=== PATIENT | female | born 1995 | race Caucasian/White ===

== ENCOUNTER 2025-06-14 15:45 | Inpatient (IN) | payer BC ==
[~2025-06-14] VITALS: Ht 160 cm; Wt 113.9 kg
[2025-06-14 16:27] LABS: PREGNANCY TEST URINE QUAL NEGATIVE (NEGATIVE)
[2025-06-14 16:41] LABS: APPEARANCE,URINE CLEAR (CLEAR); BLOOD, URINE TRACE-INTA Ery/uL (NEGATIVE); LEUKOCYTE ESTERASE ,URINE TRACE (NEGATIVE); NITRITE, URINE POSITIVE (NEGATIVE); UGLUCOSE NEGATIVE (NEGATIVE)
[2025-06-14 16:44] LABS: PLATELET COUNT (AUTO) 254 K/uL (150-450); RED BLOOD CELL COUNT(AUTO) 4.45 MIL/uL (4.0-5.2); RED CELL DISTRIBUTION WIDTH 14.6 % (11.5-15.0); WHITE BLOOD COUNT (AUTO) 6.0 K/uL (4.3-11.0)
[2025-06-14 16:54] LABS: SQUAMOUS EPITHELIAL CELL,UR Many /HPF (None Seen)
[2025-06-14 16:55] LABS: ADD URINE CULTURE YES
[2025-06-14 16:56] LABS: COARSE GRANULAR CASTS,URINE Few /LPF (None Seen)
[2025-06-14 16:58] LABS: AMPHETAMINE, URINE NEGATIVE (NEGATIVE); BARBITURATE, URINE NEGATIVE (NEGATIVE); BENZODIAZEPINE, URINE NEGATIVE (NEGATIVE); COCCAINE, URINE NEGATIVE (NEGATIVE); OPIATE, URINE NEGATIVE (NEGATIVE)
[2025-06-14 17:03] LABS: CALCIUM, SERUM 8.3 mg/dL (8.5-10.1); CREATININE 0.6 mg/dL (0.6-1.3); SODIUM SERUM 142 mmol/L (136-145); UREA NITROGEN, BLOOD 6 mg/dL (7-18)
[2025-06-14 17:05] LABS: CANNABINOID, URINE POSITIVE (NEGATIVE)
[2025-06-14 17:11] LABS: ASPARTATE AMINOTRANSFERASE 358 U/L (15-37); TOTAL PROTEIN, SERUM 7.8 g/dL (6.4-8.2)
[2025-06-14] MEDS ORDERED: NITROFURANTOIN/MONOHYDRATE MACROCRYSTALS 100 MG CAPSULE ONE (19:34)
[2025-06-14] MEDS: NITROFURANTOIN/MONOHYDRATE MACROCRYSTALS 100 MG CAPSULE PO ONE (19:38)
[2025-06-14] MEDS ORDERED: Magnesium 1GM/D5W 100ML PREMIX 200 ML IV ONE (22:44)
[2025-06-14] MEDS: Magnesium 1GM/D5W 100ML PREMIX 100 ML IV ONE (22:51)
[2025-06-14 23:07] LABS: ALCOHOL, BLOOD 309 mg/dL (0-10)
[2025-06-15 00:15] LABS: CREATINE KINASE, TOTAL 61 U/L (26-192)
[2025-06-15 01:25] LABS: ASPARTATE AMINOTRANSFERASE 250.0 U/L (15-37); CALCIUM, SERUM 8.2 mg/dL (8.5-10.1); CREATININE 0.6 mg/dL (0.6-1.3); SODIUM SERUM 144.0 mmol/L (136-145); TOTAL PROTEIN, SERUM 7.2 g/dL (6.4-8.2); UREA NITROGEN, BLOOD 5.0 mg/dL (7-18)
[2025-06-15] MEDS ORDERED: Magnesium 1GM/D5W 100ML PREMIX 200 ML IV ONE (01:39)
[2025-06-15] MEDS ORDERED: POTASSIUM CHLORIDE 10 MEQ TABLET.SA ONE (01:44)
[2025-06-15] MEDS: Magnesium 1GM/D5W 100ML PREMIX 100 ML IV SCH (01:50)
[2025-06-15] MEDS: POTASSIUM CHLORIDE 10 MEQ TABLET.SA PO ONE (01:53)
[2025-06-15] MEDS ORDERED: MAGNESIUM HYDROXIDE 30 ML UDC PO PRN (05:30)
[2025-06-15] MEDS ORDERED: ACETAMINOPHEN 325 MG TABLET PO PRN (05:30)
[2025-06-15] MEDS ORDERED: MAG HYDROX/AL HYDROX/SIMETH 30 ML UDC PO PRN (05:30)
[2025-06-15 06:14] LABS: PLATELET COUNT (AUTO) 226 K/uL (150-450); RED BLOOD CELL COUNT(AUTO) 4.36 MIL/uL (4.0-5.2); RED CELL DISTRIBUTION WIDTH 14.2 % (11.5-15.0); WHITE BLOOD COUNT (AUTO) 6.4 K/uL (4.3-11.0)
[2025-06-15 06:23] LABS: CALCIUM, SERUM 8.7 mg/dL (8.5-10.1); CREATININE 0.6 mg/dL (0.6-1.3); PHOSPHORUS 3.1 mg/dL (2.5-4.9); SODIUM SERUM 140.0 mmol/L (136-145); UREA NITROGEN, BLOOD 7.0 mg/dL (7-18)
[2025-06-15] MEDS ORDERED: OMEP40CA21 PO (07:53)
[2025-06-15] MEDS ORDERED: CLON0.5T4 PO (07:53)
[2025-06-15] MEDS ORDERED: ESCI20TA PO (07:53)
[2025-06-15] MEDS ORDERED: LEVO175T7 PO (07:53)
[2025-06-15] MEDS: NITROFURANTOIN/MONOHYDRATE MACROCRYSTALS 100 MG CAPSULE PO SCH (11:49)
[2025-06-15] MEDS: ESCITALOPRAM OXALATE (10 MG) 10 MG TABLET PO SCH (14:12)
[2025-06-15 15:51] VITALS: BP 156/90; TEMP 98.6; O2SAT 98
[2025-06-15 20:00] VITALS: BP 168/107; TEMP 97.3; O2SAT 97
[2025-06-15 20:26] VITALS: BP 168/107; TEMP 97.3; O2SAT 97
[2025-06-15 21:26] VITALS: BP 147/87; TEMP 97.3; O2SAT 97
[2025-06-16] VITALS: BP 146/90; TEMP 97.9; O2SAT 95
[2025-06-16 04:30] VITALS: BP 164/103; TEMP 98.1; O2SAT 96
[2025-06-16 08:20] VITALS: BP 143/89; TEMP 98.1; O2SAT 98
[2025-06-16] MEDS: LEVOTHYROXINE SODIUM 175 MCG TABLET PO SCH (08:48)
[2025-06-16 10:39] LABS: ASPARTATE AMINOTRANSFERASE 134.0 U/L (15-37); TOTAL PROTEIN, SERUM 7.9 g/dL (6.4-8.2)
[2025-06-16 13:20] VITALS: BP 133/97; TEMP 98.4; O2SAT 96
[2025-06-16 20:00] VITALS: BP 150/89; TEMP 98.2; O2SAT 99
[2025-06-17 04:00] VITALS: BP 144/90; TEMP 98.8; O2SAT 98
[2025-06-17 06:58] VITALS: BP 144/90; TEMP 98.8; O2SAT 98
[2025-06-17 07:18] LABS: PLATELET COUNT (AUTO) 243 K/uL (150-450); RED BLOOD CELL COUNT(AUTO) 4.53 MIL/uL (4.0-5.2); RED CELL DISTRIBUTION WIDTH 14.7 % (11.5-15.0); WHITE BLOOD COUNT (AUTO) 6.0 K/uL (4.3-11.0)
[2025-06-17 07:24] LABS: ASPARTATE AMINOTRANSFERASE 178.0 U/L (15-37); TOTAL PROTEIN, SERUM 7.9 g/dL (6.4-8.2)
[2025-06-17 07:26] LABS: CALCIUM, SERUM 9.6 mg/dL (8.5-10.1); CREATININE 0.7 mg/dL (0.6-1.3); PHOSPHORUS 5.0 mg/dL (2.5-4.9); SODIUM SERUM 143.0 mmol/L (136-145); UREA NITROGEN, BLOOD 7.0 mg/dL (7-18)
[2025-06-17 08:00] VITALS: BP 140/92; TEMP 98.4; O2SAT 97
[2025-06-17 12:00] VITALS: BP 127/89; TEMP 98.1; O2SAT 98
[2025-06-17 16:00] VITALS: BP 143/94; TEMP 98.2; O2SAT 97
[2025-06-17 20:00] VITALS: BP 131/94; TEMP 98.1; O2SAT 96
[2025-06-18] VITALS: BP 137/92; TEMP 97.5; O2SAT 98
[2025-06-18 04:00] VITALS: BP 143/100; TEMP 98.1; O2SAT 100
[2025-06-18 07:00] VITALS: BP 138/97; TEMP 98.6; O2SAT 98
[2025-06-18 07:11] LABS: PLATELET COUNT (AUTO) 238 K/uL (150-450); RED BLOOD CELL COUNT(AUTO) 4.37 MIL/uL (4.0-5.2); RED CELL DISTRIBUTION WIDTH 14.3 % (11.5-15.0); WHITE BLOOD COUNT (AUTO) 7.0 K/uL (4.3-11.0)
[2025-06-18 07:45] LABS: CALCIUM, SERUM 9.3 mg/dL (8.5-10.1); CREATININE 0.7 mg/dL (0.6-1.3); PHOSPHORUS 4.0 mg/dL (2.5-4.9); SODIUM SERUM 136.0 mmol/L (136-145); UREA NITROGEN, BLOOD 6.0 mg/dL (7-18)
[2025-06-18 07:56] LABS: ASPARTATE AMINOTRANSFERASE 131.0 U/L (15-37); TOTAL PROTEIN, SERUM 7.7 g/dL (6.4-8.2)
[2025-06-18 16:00] VITALS: BP 141/96; TEMP 98.1; O2SAT 98
[2025-06-18 20:05] VITALS: BP 133/88; TEMP 98.1; O2SAT 97
[2025-06-18] MEDS: LOPERAMIDE HCL (2 MG CAP) 2 MG CAPSULE PO PRN (20:21)
[2025-06-19 04:05] VITALS: BP 148/100; TEMP 98.4; O2SAT 99
[2025-06-19 08:00] VITALS: BP 141/101; TEMP 97.9; O2SAT 98
[2025-06-19 10:10] LABS: PLATELET COUNT (AUTO) 279 K/uL (150-450); RED BLOOD CELL COUNT(AUTO) 4.42 MIL/uL (4.0-5.2); RED CELL DISTRIBUTION WIDTH 14.6 % (11.5-15.0); WHITE BLOOD COUNT (AUTO) 8.0 K/uL (4.3-11.0)
[2025-06-19 10:25] LABS: CALCIUM, SERUM 9.1 mg/dL (8.5-10.1); CREATININE 0.7 mg/dL (0.6-1.3); PHOSPHORUS 4.0 mg/dL (2.5-4.9); SODIUM SERUM 135.0 mmol/L (136-145); UREA NITROGEN, BLOOD 7.0 mg/dL (7-18)
[2025-06-19 10:28] LABS: ASPARTATE AMINOTRANSFERASE 263.0 U/L (15-37); TOTAL PROTEIN, SERUM 8.1 g/dL (6.4-8.2)
[2025-06-19] MEDS ORDERED: LOPE2CAP40 PO (11:08)
== END 2025-06-19 14:40 | disposition home or self-care (01) | DRG 918 ==
LOC: ER 15:56 → TELE 06-15 10:28 → MED 06-18 20:49
PROVIDERS: ADMIT Student in an Organized Health Care Education/Training Program; ATTEND Student in an Organized Health Care Education/Training Program
DX: T43.212A Poisoning by selective serotonin and norepinephrine reuptake inhibitors, intentional self-harm, initial encounter (principal); N39.0 Urinary tract infection, site not specified; B96.89 Other specified bacterial agents as the cause of diseases classified elsewhere; F33.9 Major depressive disorder, recurrent, unspecified; E03.9 Hypothyroidism, unspecified; E83.41 Hypermagnesemia; I10 Essential (primary) hypertension; J45.909 Unspecified asthma, uncomplicated; E66.01 Morbid (severe) obesity due to excess calories; F10.21 Alcohol dependence, in remission; K76.0 Fatty (change of) liver, not elsewhere classified; Z68.41 Body mass index [BMI] 40.0-44.9, adult; E87.6 Hypokalemia; F41.9 Anxiety disorder, unspecified; G47.33 Obstructive sleep apnea (adult) (pediatric); R74.01 Elevation of levels of liver transaminase levels; Z20.822 Contact with and (suspected) exposure to COVID-19; R94.31 Abnormal electrocardiogram [ECG] [EKG]; Y92.009 Unspecified place in unspecified non-institutional (private) residence as the place of occurrence of the external cause; K52.9 Noninfective gastroenteritis and colitis, unspecified; F12.90 Cannabis use, unspecified, uncomplicated; R16.2 Hepatomegaly with splenomegaly, not elsewhere classified
CPT/HCPCS: 36415; 76700-TC; 80048-TC; 80053-TC; 80076-TC; 81001; 82550-TC; 83735-TC; 84100-TC; 84439-TC; 84443-TC; 84703-TC; 85025-TC; 87086-TC; 93307-TC; G0378; G0480; J3475